=== PATIENT | male | born 1970 | race Two or more races ===

== ENCOUNTER 2017-10-23 14:01 | Emergency (ER) | payer OTHER ==
[2017-10-23 14:16] VITALS: PULSE 85; RESP 18
--- NOTE | 2017-10-23 14:42 | EDPHY ---
H & P Time Seen by Provider: 10/23/17 14:24 HPI/ROS: CHIEF COMPLAINT: Cough History by patient HISTORY OF PRESENT ILLNESS: 47-year-old man with no significant past medical history, smoker, presents complaining of 4 days of malaise, fatigue and cough occasionally productive of yellow sputum. Patient states that symptoms began on Sunday with headache in generally feeling tired unwell. He developed some sinus congestion and had 2 days of copious nonbloody diarrhea. He then developed the cough and sinus congestion. He has had a poor appetite but there has been no nausea or vomiting. He is taking food and fluids without difficulty. He denies any fever. He had some shortness of breath last night. He has some pain in his chest when he coughs, but not when he breathes. He denies any leg pain or swelling. He denies any rash. There is no known ill contacts. He did not get a flu shot this year. REVIEW OF SYSTEMS: As in HPI, and all other systems reviewed and are negative Physical Exam: General Appearance: Alert and no distress. Head: normocephalic, atraumatic, no sinus tenderness Eyes: Pupils equal and round no injection. Ears: TM clear bilaterally OP: mucus membranes moist, no tonsillar enlargement, mild erythema, no exudates Neck: no meningismus, no cervical nodes, no submandibular nodes Respiratory: Chest is nontender, lungs are clear to auscultation. No wheezes, rales, rhonchi but positive wheezing with cough Cardiac: regular rate and rhythm. S1, S2, no murmurs, gallops, rubs appreciated. Gastrointestinal: Abdomen is soft and nontender, no masses, bowel sounds normal. Musculoskeletal: Neck is supple and nontender. Extremities have full range of motion and are nontender. Skin: No rashes or lesions. Constitutional: Initial Vital Signs Temperature (C) 37 C 10/23/17 14:14 Heart Rate 85 10/23/17 14:14 Respiratory Rate 18 10/23/17 14:14 Blood Pressure 145/62 H 10/23/17 14:14 O2 Sat (%) 95 10/23/17 14:14 O2 Delivery Mode Room Air Allergies/Adverse Reactions: No Known Allergies Allergy (Verified 11/07/13 11:28) Home Medications: Medication Instructions Recorded NO HOME MEDICATIONS 08/05/10 Hydrocodone/APAP 5/325 [[place] 1 - 2 tab PO Q4PRN PRN #20 tab 11/07/13 5/325 (*)] Methocarbamol [Robaxin 750 mg (*)] 750 - 1,500 mg PO QID PRN #30 tab 11/07/13 Albuterol [Proventil Inhaler HFA 1 - 2 puffs IH Q4H #1 mdi 10/23/17 (*)] Medical Decision Making ED Course/Re-evaluation: 47-year-old man presents with well as, URI symptoms and cough. Patient is not hypoxic and there is no evidence of respiratory distress or serious systemic toxicity. Flu swab is negative. We will treat him for flu-like illness and give a trial of albuterol for cough. Discussed with patient that there is no indication for antibiotics at this time. We discussed home care and conservative measures and return precautions. - Data Points Laboratory Results: 10/23/17 14:15 Influenza A,B Rapid NEGATIVE FOR FLU (NEGATIVE) Departure - Departure Disposition: Home, Routine, Self-Care Clinical Impression: Influenza-like illness Condition: Good Instructions: Influenza (ED) Additional Instructions: You were seen by Dr. Ramona Gutierrez. Use a humidifier in the room where you sleep. Try hot drinks with honey. Take ibuprofen 400-600mg 4 times daily and Tylenol 500-1000mg every 6 hours as needed for fever and/or pain. Try albuterol inhaler for cough and before bed at night. Return for any worsening or new concerns. Referrals: NONE *PRIMARY CARE P,. [Primary Care Provider] - As per Instructions Prescriptions: Albuterol [Proventil Inhaler HFA (*)] 1 - 2 puffs IH Q4H #1 mdi
[2017-10-23 15:11] VITALS: BP 156/80; TEMP 98; O2SAT 96
== END 2017-10-23 15:09 | disposition home or self-care (01) ==
LOC: CED 14:01
DX: J11.1 Influenza due to unidentified influenza virus with other respiratory manifestations (principal)
CPT/HCPCS: 87400-PO